=== PATIENT | male | born 1955 | race Caucasian/White ===

== ENCOUNTER 2021-02-22 17:08 | Emergency (ER) | payer OTHER ==
[~2021-02-22] VITALS: Ht 190.5 cm; Wt 99.8 kg
[~2021-02-22 17:08] MED LIST: ACEDIPPM PO; CARI350 PO; CEPH500 PO; CYCL10 PO; GABA300 PO; HYDACE5 PO; IBUHYD PO; IBUP600 PO; IBUP800 PO; MELO7.5 PO; METF500C PO; METPRE4DP PO; OXYACE7.5T PO; Percocet 5-3251 EACH PO; Prednisone20 MG PO; RXALBOI INH; RXCYCL10 PO; RXOXYACE PO; Robaxin-750750 MG PO; SULTRIDS PO; Valium5 MG PO
[2021-02-22 17:49] LABS: BASOPHILS ABSOLUTE AUTO 0.06 K/mm3 (0.00-0.23); BASOPHILS PERCENT AUTO 1 % (0-2); EOSINOPHILS ABSOLUTE AUTO 0.31 K/mm3 (0.00-0.68); EOSINOPHILS PERCENT AUTO 4 % (0-6); Hematocrit 42.7 % (37.0-53.0); Hemoglobin 14.2 g/dL (13.5-17.5); IMMATURE GRAN ABSOLUTE AUTO 0.04 K/mm3 (0.00-0.10); IMMATURE GRAN PERCENT AUTO 1 % (0-1); LYMPHOCYTES ABSOLUTE AUTO 2.72 K/mm3 (0.84-5.20); LYMPHOCYTES PERCENT AUTO 34 % (21-46); MONOCYTES ABSOLUTE AUTO 0.95 K/mm3 (0.16-1.47); MONOCYTES PERCENT AUTO 12 % (4-13); Mean Corpuscular HGB 31.9 pg (26.0-34.0); Mean Corpuscular HGB Conc 33.3 g/dL (31.5-36.5); Mean Corpuscular Volume 96 fL (80-100); Mean Platelet Volume 9.4 fL (9.1-12.4); NEUTROPHILS PERCENT AUTO 50 % (41-73); Platelet Count 295 K/mm3 (150-400); RDW Standard Deviation 42.2 fL (35.1-46.3); Red Blood Cell Count 4.45 M/mm3 (4.30-5.90); White Blood Cell Count 8.08 K/mm3 (4.00-11.30)
[2021-02-22 18:02] LABS: Alanine Aminotransfer (ALT/SGP 32 U/L (12-78); Albumin, Blood 3.7 g/dL (3.4-5.0); Albumin/Globulin Ratio 0.8 (0.8-1.8); Alk Phos 140 U/L (50-136); Anion Gap 5 mmol/L (6-16); Aspartate Aminotrans (AST/SGOT 25 U/L (12-37); Bilirubin, Total 0.3 mg/dL (0.1-1.0); Blood Urea Nitrogen 18 mg/dL (8-24); CO2, Blood 29 mmol/L (21-32); Chloride, Blood 102 mmol/L (98-108); Globulin, Blood 4.4 g/dL (2.2-4.0); Glomerular Filtration Rate >60 (60-); Glucose, Blood 224 mg/dL (70-99); Sodium, Blood 136 mmol/L (136-145); Total Protein, Blood 8.1 g/dL (6.4-8.2)
[2021-02-22 20:15] LABS: Magnesium, Blood 2.1 mg/dL (1.6-2.4); Troponin I <0.015 ng/mL (0.000-0.040)
[2021-02-22] MEDS ORDERED: GABAPENTIN600 MG PO (20:21)
[2021-02-22] MEDS ORDERED: FUROSEMIDE20 MG PO (20:21)
[2021-02-22] MEDS ORDERED: TAMSULOSIN HCL0.4 M1 PO (20:22)
[2021-02-22] MEDS ORDERED: HYDROXYZINE PAM25 MG PO (20:22)
[2021-02-22] MEDS ORDERED: BUPROPION XL150 M1 PO (20:22)
[2021-02-22] MEDS ORDERED: LISI5 PO (20:23)
[2021-02-22] MEDS ORDERED: GLUCOPHAGE1000 M5 PO (20:23)
[2021-02-22] MEDS ORDERED: Micro-K10 MEQ PO (20:23)
[2021-02-22] MEDS ORDERED: METOPROLOL SUCC25 MG PO (20:23)
== END 2021-02-22 22:35 | disposition home or self-care (01) ==
LOC: ER 17:08
PROVIDERS: Physician Assistant; Student in an Organized Health Care Education/Training Program
DX: L03.116 Cellulitis of left lower limb (principal); L03.115 Cellulitis of right lower limb; E11.9 Type 2 diabetes mellitus without complications; F17.210 Nicotine dependence, cigarettes, uncomplicated; Z88.5 Allergy status to narcotic agent; Z79.84 Long term (current) use of oral hypoglycemic drugs; Z79.899 Other long term (current) drug therapy
CPT/HCPCS: 36415; 80053; 83605; 83735; 84484; 85025; 93005; 93010; 93971; 96365; 99283-25; J0696; J7030

== ENCOUNTER 2021-02-23 10:18 | Day surgery (SDC) | payer OTHER ==
[~2021-02-23 10:18] MED LIST changes: +BUPROPION XL150 M1 PO; +FUROSEMIDE20 MG PO; +GABAPENTIN600 MG PO; +GLUCOPHAGE1000 M5 PO; +HYDROXYZINE PAM25 MG PO; +LISI5 PO; +METOPROLOL SUCC25 MG PO; +Micro-K10 MEQ PO; +TAMSULOSIN HCL0.4 M1 PO
--- NOTE | 2021-02-23 17:23 | NUR ---
IV SITE WRAPPED WITH 2X2'S, COBAN, AND NETTING FOR USE TOMORROW
--- NOTE | 2021-02-23 17:24 | NUR ---
PT TAKEN TO PRIVATE CAR VIA W/C
== END 2021-02-23 16:00 | disposition home or self-care (01) ==
LOC: ATC 10:18
DX: L03.116 Cellulitis of left lower limb (principal); L03.115 Cellulitis of right lower limb; E11.9 Type 2 diabetes mellitus without complications; F17.210 Nicotine dependence, cigarettes, uncomplicated; Z88.5 Allergy status to narcotic agent; Z79.84 Long term (current) use of oral hypoglycemic drugs; Z79.899 Other long term (current) drug therapy
CPT/HCPCS: 96365; J0696

== ENCOUNTER 2021-02-24 00:26 | Day surgery (SDC) | payer OTHER | END 2021-02-24 15:33 | disposition home or self-care (01) | LOC: ATC 00:26 | DX: L03.116 Cellulitis of left lower limb (principal); L03.115 Cellulitis of right lower limb; E11.9 Type 2 diabetes mellitus without complications; F17.210 Nicotine dependence, cigarettes, uncomplicated | CPT/HCPCS: 96365; J0696 ==

== ENCOUNTER 2021-02-27 00:18 | Day surgery (SDC) | payer OTHER | END 2021-02-27 15:39 | disposition home or self-care (01) | LOC: ATC 00:18 | DX: L03.116 Cellulitis of left lower limb (principal); L03.115 Cellulitis of right lower limb; E11.9 Type 2 diabetes mellitus without complications; F17.210 Nicotine dependence, cigarettes, uncomplicated; Z88.5 Allergy status to narcotic agent; Z79.84 Long term (current) use of oral hypoglycemic drugs | CPT/HCPCS: J0696 ==

== ENCOUNTER 2021-02-28 00:26 | Day surgery (SDC) | payer OTHER | END 2021-02-28 15:55 | disposition home or self-care (01) | LOC: ATC 00:26 | DX: L03.116 Cellulitis of left lower limb (principal); L03.115 Cellulitis of right lower limb; E11.9 Type 2 diabetes mellitus without complications; F17.210 Nicotine dependence, cigarettes, uncomplicated | CPT/HCPCS: J0696 ==

== ENCOUNTER 2021-03-01 03:55 | Day surgery (SDC) | payer OTHER | END 2021-03-01 15:37 | disposition home or self-care (01) | LOC: ATC 03:55 | DX: L03.116 Cellulitis of left lower limb (principal); L03.115 Cellulitis of right lower limb; E11.9 Type 2 diabetes mellitus without complications; F17.210 Nicotine dependence, cigarettes, uncomplicated; Z79.84 Long term (current) use of oral hypoglycemic drugs | CPT/HCPCS: 96365; J0696 ==

== ENCOUNTER 2021-03-27 08:56 | Emergency (ER) | payer OTHER ==
[~2021-03-27] VITALS: Ht 190.5 cm; Wt 103.0 kg
[2021-03-27 09:37] LABS: BASOPHILS ABSOLUTE AUTO 0.07 K/mm3 (0.00-0.23); BASOPHILS PERCENT AUTO 1 % (0-2); EOSINOPHILS ABSOLUTE AUTO 0.34 K/mm3 (0.00-0.68); EOSINOPHILS PERCENT AUTO 4 % (0-6); Hematocrit 41.4 % (37.0-53.0); Hemoglobin 13.4 g/dL (13.5-17.5); IMMATURE GRAN ABSOLUTE AUTO 0.09 K/mm3 (0.00-0.10); IMMATURE GRAN PERCENT AUTO 1 % (0-1); LYMPHOCYTES ABSOLUTE AUTO 2.76 K/mm3 (0.84-5.20); LYMPHOCYTES PERCENT AUTO 33 % (21-46); MONOCYTES ABSOLUTE AUTO 0.88 K/mm3 (0.16-1.47); MONOCYTES PERCENT AUTO 10 % (4-13); Mean Corpuscular HGB 31.5 pg (26.0-34.0); Mean Corpuscular HGB Conc 32.4 g/dL (31.5-36.5); Mean Corpuscular Volume 97 fL (80-100); Mean Platelet Volume 8.7 fL (9.1-12.4); NEUTROPHILS ABSOLUTE AUTO 4.34 K/mm3 (1.96-9.15); NEUTROPHILS PERCENT AUTO 51 % (41-73); Platelet Count 329 K/mm3 (150-400); RDW Standard Deviation 42.9 fL (35.1-46.3); Red Blood Cell Count 4.25 M/mm3 (4.30-5.90); White Blood Cell Count 8.48 K/mm3 (4.00-11.30)
[2021-03-27 09:50] LABS: Alanine Aminotransfer (ALT/SGP 32 U/L (12-78); Albumin, Blood 3.4 g/dL (3.4-5.0); Albumin/Globulin Ratio 0.7 (0.8-1.8); Alk Phos 183 U/L (50-136); Anion Gap 5 mmol/L (6-16); Aspartate Aminotrans (AST/SGOT 27 U/L (12-37); Bilirubin, Total 0.2 mg/dL (0.1-1.0); Blood Urea Nitrogen 16 mg/dL (8-24); Bun/Creatinine Ratio 18.7 (12.0-20.0); CO2, Blood 29 mmol/L (21-32); Calcium, Blood 8.9 mg/dL (8.5-10.1); Chloride, Blood 101 mmol/L (98-108); Creatinine, Blood 0.85 mg/dL (0.60-1.20); Globulin, Blood 4.7 g/dL (2.2-4.0); Glomerular Filtration Rate >60 (60-); Glucose, Blood 194 mg/dL (70-99); Sodium, Blood 135 mmol/L (136-145); Total Protein, Blood 8.1 g/dL (6.4-8.2); Troponin I <0.015 ng/mL (0.000-0.040)
[2021-03-27] MEDS ORDERED: CRUTCH4 XX (10:39)
[2021-03-27] MEDS ORDERED: Norco 5-325 Ta1 EACH PO (11:17)
== END 2021-03-27 11:31 | disposition home or self-care (01) ==
LOC: ER 08:56
PROVIDERS: Physician Assistant
DX: S80.01XA Contusion of right knee, initial encounter (principal); M25.511 Pain in right shoulder; F17.210 Nicotine dependence, cigarettes, uncomplicated; G47.9 Sleep disorder, unspecified; Z91.81 History of falling; Z88.5 Allergy status to narcotic agent; Z79.899 Other long term (current) drug therapy; Z79.84 Long term (current) use of oral hypoglycemic drugs; W18.11XA Fall from or off toilet without subsequent striking against object, initial encounter
CPT/HCPCS: 71045; 73562-RT; 80053; 84484; 85025; 93005; 93010; 96374; 99284-25; J1170

== ENCOUNTER → 2021-04-10 | Outpatient (CLI) | payer OTHER ==
[~2021-04-10] MED LIST changes: +CRUTCH4 XX; +Norco 5-325 Ta1 EACH PO
== END | disposition home or self-care (01) ==
LOC: LAB SHORT 10:03 → LAB 10:03
DX: L30.8 Other specified dermatitis (principal)
CPT/HCPCS: 88305; 88312; 88313

== ENCOUNTER → 2021-06-06 | Outpatient (CLI) | payer OTHER | END | disposition home or self-care (01) | LOC: LAB SHORT 08:12 | DX: B35.1 Tinea unguium (principal) | CPT/HCPCS: 88305; 88312 ==

== ENCOUNTER → 2023-05-04 | Outpatient (CLI) | payer OTHER | END | disposition home or self-care (01) | LOC: LAB SHORT 10:50 → LAB 10:50 | DX: F15.21 Other stimulant dependence, in remission (principal) | CPT/HCPCS: G0480 ==